=== PATIENT | male | born 1995 | race Caucasian/White ===

== ENCOUNTER 2024-07-19 20:11 | Emergency (ER) | payer OTHER, SELFPAY ==
[2024-07-19 20:14] VITALS: BP 146/95; PULSE 96; RESP 18; TEMP 36.6; O2SAT 97
--- NOTE | 2024-07-19 20:15 | DI.RAD_ITS ---
Exam(s) XR ANKLE LT COMPLETE EXAM: XR ANKLE LT COMPLETE CLINICAL HISTORY: left ankle pain TECHNIQUE: 2D digital imaging was performed of the left ankle. Three images were obtained. AP, lat eral and oblique views were obtained. COMPARISON: No exams were available for comparison FINDINGS: BONES: No acute fracture is present. No bony destructive lesion is seen. JOINTS:The ankle mortise is normally aligned. SOFT TISSUE: There is edema seen in the soft tissues lateral to the ankle. IMPRESSION: No acute fracture or dislocation. DATA REPOSITORY: RADIATION DOSE DELIVERED:
[2024-07-19 21:06] VITALS: BP 137/85; PULSE 86; RESP 16; O2SAT 97
--- NOTE | 2024-07-19 21:37 | DI.VRAD_ITS ---
PROCEDURE INFORMATION: Exam: XR Left Ankle Exam date and time: 07/19/2024 8:39 PM Age: 29 years old Clinical indication: Patient HX: PT sts missed a step, left ankle pain TECHNIQUE: Imaging protocol: Radiologic exam of the left ankle. Views: 3 or more views. COMPARISON: No relevant prior studies available. FINDINGS: Bones/joints: There is no evidence for acute fracture or dislocation. Soft tissues: Soft tissue edema is identified overlying the distal fibula. IMPRESSION: 1. No evidence for acute fracture or dislocation. 2. Soft tissue edema identified overlying the distal fibula. Dictated and Authenticated by: Asher Gallego MD. Ordering:AUSTEN Mcpherson MD
--- NOTE | 2024-07-20 16:40 | ED.GENADUL_ITS ---
Discharge Plan Disposition Patient Disposition: Home Discharge Details Clinical Impression: Ankle sprain Primary Care Provider: Unknown,Unknown ED Provider: Vida Schmitz Home Meds and New Rx's Prescriptions: No Action No Known Home Meds Discharge Instructions Instructions: Ankle Sprain ED Additional Instructions: Take ibuprofen and/or Tylenol as needed for pain, ice, elevate, rest Use crutches and boot with ambulation. Weightbearing as tolerated Please be reevaluated in 1 week by your primary care physician and return earlier should you have new or worsening complaints Stand Alone Forms: Work Release Discharge Data Discharge Date/Time-TO BE ENTERED AT DEPARTURE: 07/19/24 21:26 HPI General Date/Time Provider Initiated Documentation: 07/19/24 20:19 . HPI Narrative: this 29 yo male presents after twisting left ankle after stepping off a stair at 1800 today while at work. pt immediately felt a pop and pain. pt has been unable to ambulate since that time. denies knee pain or any additional complaints at this time. Related Data Home Medications ?Medication ?Instructions ?Recorded ?Confirmed Unknown [No Known Home Meds] 07/19/24 07/19/24 Allergies Allergy/AdvReac Type Severity Reaction Status Date / Time No Known Allergies Allergy Unverified 07/19/24 20:21 General Stated Complaint: Orthopedic SHMUEL: 4 Exam Narrative Exam Narrative: left lateral ankle with tenderness and visible swelling, pt remains neurovascularly intact, no tenderness to proximal knee Course Vital Signs Vital signs: Vital Signs Temperature 36.6 C 07/19/24 20:14 Pulse 96 H 07/19/24 20:14 Respiratory Rate 18 07/19/24 20:14 Blood Pressure 146/95 H 07/19/24 20:14 Pulse Oximetry 97 07/19/24 20:14 Temperature 36.6 C 07/19/24 20:14 Temperature Source Temporal Artery Scan 07/19/24 20:14 Pulse 86 07/19/24 21:06 Respiratory Rate 16 07/19/24 21:06 Respiratory Effort Normal 07/19/24 20:18 Blood Pressure 137/85 07/19/24 21:06 Blood Pressure Position Sitting 07/19/24 20:14 Pulse Oximetry 97 07/19/24 21:06 Oxygen Delivery Method Room Air 07/19/24 20:14 Oxygen Flow Rate 0 07/19/24 20:14 Pain Level 3 07/19/24 21:06 Medical Decision Making 29 yo male with injury at work to left lateral ankle. xray was ordered and per radiologist interpretation and my review, no evidence of acute abnormality. suspect sprain based on clinical exam. remains neurovascularly intact. placed in tall boot and supplied with crutches. referral to pcp for recheck in one week. restrictions reviewed with patient for him to supply to his place of employment. return precautions reviewed and pt expressed understanding. Quality:SDOH Health Related Social Needs: No Data to Display PFSH All Active Problems (Updated 07/19/24 @ 20:55 by DANA Melgar) Ankle sprain (Acute) Social History Smoking risk assessment performed?: No
== END 2024-07-19 21:26 | disposition home or self-care (01) ==
LOC: ER 21:04
PROVIDERS: Emergency Provider Physician Assistant
DX: S93.402A Sprain of unspecified ligament of left ankle, initial encounter (principal); X50.1XXA Overexertion from prolonged static or awkward postures, initial encounter; Y93.01 Activity, walking, marching and hiking; Y92.89 Other specified places as the place of occurrence of the external cause
CPT/HCPCS: 99283; 73610

== ENCOUNTER 2025-01-02 16:41 | Outpatient (REF) | payer OTHER, SELFPAY ==
[2025-01-02 20:11] LABS: ALT 31 U/L (16-63); AST 21 U/L (15-37); Albumin 4.2 g/dL (3.4-5.0); Alkaline Phosphatase 77 U/L (46-116); BUN 23 mg/dL (7-18); Bilirubin, Total 0.7 mg/dL (0.2-1.0); Calcium 9.3 mg/dL (8.5-10.1); Calculated LDL 98 mg/dL (<100); Chloride 105 mmol/L (98-107); Cholesterol 165 mg/dL (<200); Estimated GFR 105.14 (mL/min/1.73m2); Glucose 99 mg/dL (74-106); HDL Cholesterol 52 mg/dL (>or=40); Potassium 4.4 mmol/L (3.5-5.1); Sodium 139 mmol/L (136-145); Total Protein 7.6 g/dL (6.4-8.2); Triglyceride 78 mg/dL (<150)
[2025-01-04 14:53] LABS: HIV-1/2 Ag & Ab Screen Negative (Negative); Hepatitis C Ab w Rflx HCV PCR Negative (Negative)
== END 2025-01-02 16:42 | disposition home or self-care (01) ==
LOC: NCHCN 16:41
PROVIDERS: PCP Physician Assistant; Visit Provider Physician Assistant
DX: Z13.220 Encounter for screening for lipoid disorders (principal); Z11.4 Encounter for screening for human immunodeficiency virus [HIV]; Z11.59 Encounter for screening for other viral diseases
CPT/HCPCS: 80053; 80061; 86803; 87389